=== PATIENT | male | born 1955 | race Caucasian/White ===

== ENCOUNTER 2016-11-13 14:31 | Emergency (ER) | payer BC, OTHER ==
[~2016-11-13] VITALS: Ht 170.2 cm; Wt 88.5 kg
[2016-11-13 14:34] VITALS: Ht 170.2 cm; Wt 88.5 kg
[2016-11-13] MEDS ORDERED: LIDOCAINE 1% (MDV) 10 ML INJ INJ STA (14:52)
[2016-11-13] MEDS ORDERED: LIDOCAINE 1% (MDV) 20 ML INJ ONE (15:02)
[2016-11-13] MEDS ORDERED: LIDOCAINE 1% (MDV) 20 ML INJ SC ONE (15:30)
--- NOTE | 2016-11-13 15:35 | RADRPT ---
PROCEDURE: XR Right third finger CLINICAL INDICATION: trauma TECHNIQUE: AP, oblique and lateral views of the right there is finger were obtained. COMPARISON: No prior studies are available for comparison. FINDINGS: Comminuted fracture of the distal tuft of the third digit with associated soft tissue laceration The joint spaces are preserved. Bone mineralization is normal. IMPRESSION: Comminuted fracture of the distal tuft of the third digit with associated soft tissue laceration. RPTAT: [facility] .Humberto Portillo MD, Date Time Electronically viewed and signed by .Humberto Portillo MD, MD on 11/13/2016 15:35 .M/
[2016-11-13] MEDS ORDERED: HYDR-906 PO (15:54)
[2016-11-13] MEDS ORDERED: CEPH-443 PO (15:54)
[2016-11-13] MEDS ORDERED: SULF1TAB31 PO (15:54)
[2016-11-13] MEDS ORDERED: CEFAZOLIN 1 GM INJ IM ONE (16:00)
--- NOTE | 2016-12-08 15:35 | ERD ---
ER Documentation Chief Complaint Chief Complaint SMASHED RT 3RD FINGER IN CAR DOOR ABOUT 1HR AGO HPI 61-year-old male presenting one hour status post right third digit versus car door. Patient denies numbness, tingling, loss of sensation. Says that the pain is 8 out of 10 and characterizes throbbing. Has not taken any medications to relieve the symptoms. No other complaints describes no other associated manifestations. ROS All systems reviewed and are negative except as per history of present illness. Medications Home Meds Active Scripts Cephalexin* (Keflex*) 500 Mg Capsule, 500 MG PO QID for 5 Days, CAP Prov:REINALDO PEREIRA PA-C 11/13/16 Sulfamethoxazole/Trimethoprim* (Bactrim Ds* Tablet) 1 Each Tablet, 1 TAB PO BID , #14 TAB Prov:REINALDO PEREIRA PA-C 11/13/16 Hydrocodone/Acetaminophen ([place] 5-325 Tablet) 1 Each Tablet, 1 TAB PO Q6H Y for PAIN, #7 TAB Prov:REINALDO PEREIRA PA-C 11/13/16 PMhx/Soc History of Surgery: No Anesthesia Reaction: No Hx Neurological Disorder: No Hx Respiratory Disorders: No Hx Cardiac Disorders: No Hx Psychiatric Problems: No Hx Miscellaneous Medical Probl: No Hx Alcohol Use: No Hx Substance Use: No Hx Tobacco Use: No Smoking Status: Never smoker Physical Exam Physical Exam Const: Well-appearing 61-year-old male no acute distress Head: Atraumatic Eyes: Normal Conjunctiva ENT: Normal External Ears, Nose and Mouth. Neck: Full range of motion..~ No meningismus. Resp: Clear to auscultation bilaterally Cardio: Regular rate and rhythm, no murmurs Abd: Soft, non tender, non distended. Normal bowel sounds Skin: No petechiae or rashes Back: No midline or flank tenderness Ext: Tender third distal phalanx of the right hand. Minimal swelling. Erythema. [place]-shaped laceration from the posterior to the palmar side of the finger. No debris. Neur: Awake and alert Psych: Normal Mood and Affect Results 24 hrs Current Medications Medications (Trade) Dose Ordered Sig/[place] Route PRN Reason Start Time Stop Time Status Last Admin Dose Admin Lidocaine HCl (Lidocaine 1% (Mdv) 10 ml) 10 ml ONCE STAT INJ 11/13/16 14:52 11/13/16 15:02 DC Lidocaine (Xylocaine 1% (Mdv) 20 ml) 20 ml ONCE ONCE SC 11/13/16 15:30 11/13/16 15:41 DC Lidocaine (Xylocaine 1% (Mdv) 20 ml) 20 ml STK-MED ONCE .ROUTE 11/13/16 15:02 11/13/16 15:03 DC Cefazolin Sodium (Ancef) 1 gm ONCE ONCE IM 11/13/16 16:00 11/13/16 16:01 DC 11/13/16 16:03 Procedures/MDM 61-year-old male presenting one hour status post car door versus right third digit. X-ray was obtained read by the radiologist given the following impression: Comminuted fracture of the distal tuft of the third digit with associated soft tissue laceration. Most likely diagnosis is open fracture. Case was presented to my attending who suggested IV antibiotics. IV Ancef given in the emergency department. Tetanus as of today. Area was irrigated with normal saline. No foreign body identified. 20 simple sutures were placed. Nylon 4-0 was used. Adequate approximation. Neurovascularly intact before and after procedure. Will be discharged with eczema Keflex. I have spoke with the patient regarding their condition and future management. They have verbally responded that they understand their status and treatment plan. The patients vitals are stable, and their current condition is appropriate for discharge. The patient will be given discharge instructions with return precautions. Departure Diagnosis: Primary Impression: Open fracture Condition: Stable Patient Instructions: Fracture, Finger (Open) Additional Instructions: You were seen in the emergency department for your laceration which has been closed. Your wound has been cleaned and covered with antibiotic ointment. Please keep this dressing on for 12 hours. After 12 hours take the dressing down and gently clean the wound with ONLY soap and water. If you were given antibiotics, complete the course of treatment as prescribed. Look for signs of infection such as increasing redness, swelling, pain or drainage of pus (yellow/ green fluid). If you see signs of infection, please return to the emergency department immediately. If there are no signs of infection, cover your wound with antibiotic ointment and reapply a dressing. You will form a scar. To keep from scarring too dark, keep your wound covered and out of the sun for the next 6-12 months. Consider using OTC anti-scar creams such as Mederma. Return to the ED for a wound check in 2 days and again for suture removal in 10-14 days. REINALDO PEREIRA PA-C Dec 08, 2016 15:35
== END 2016-11-13 16:29 | disposition home or self-care (01) ==
LOC: FTE 14:31
DX: S62.632A Displaced fracture of distal phalanx of right middle finger, initial encounter for closed fracture (principal); W23.0XXA Caught, crushed, jammed, or pinched between moving objects, initial encounter; Y92.810 Car as the place of occurrence of the external cause
CPT/HCPCS: 12001; 73140; 96372; 99284; J0690; Z7610